=== PATIENT | male | born 2000 | race Caucasian/White ===

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

== ENCOUNTER 2022-04-10 15:00 | Inpatient (IN) | payer MEDICAID, OTHER ==
[2022-04-10 17:11] LABS: Amphetamine Screen,Urine Not Detected (NotDetected); Barbiturate Screen,Urine Not Detected (NotDetected); Benzodiazepines Screen,Urine Detected (NotDetected); Cocaine Screen,Urine Not Detected (NotDetected); Methadone Screen, Urine Not Detected (NotDetected); Opiate Screen,Urine Not Detected (NotDetected); Oxycodone Screen, Urine Not Detected (NotDetected); Phencyclidine Screen,Urine Not Detected (NotDetected); Tricyclic Antidepressant,Urine Not Detected (NotDetected); Urn Cannabinoid Scrn Detected (NotDetected)
--- NOTE | 2022-04-10 17:39 | ED ---
General Adult HPI - General Chief complaint: Psychiatric Symptoms Stated complaint: EPS eval Time Seen by Provider: 04/10/22 15:22 Source: patient, RN notes reviewed, old records reviewed Mode of arrival: ambulatory Limitations: no limitations - History of Present Illness Initial comments: This is a 22-year-old male presents emergency Department with a past medical history significant for depression and autism. Patient comes in stating that he has been depressed for a while. Patient states he is becoming more more preoccupied with hurting himself. Patient states one of the more recent events that has occurred that's made her more depressed is that he is attracted to young lady at work and she is not interested in fact she is interested in his coworker. Patient denies having any plan patient denies any previous suicide attempts. Patient states he has been smoking marijuana quite a bit lately but he states his only during cousin helps with his depression. Patient denies any physical complaints today. Patient denies headache patient denies numbness weakness. Patient denies any chest pain difficulty breathing first breath per patient denies any recent fever chills or cough. Patient denies abdominal pain patient denies nausea vomiting diarrhea. - Related Data Home Medications Medication Instructions Recorded Confirmed FLUoxetine HCL [PROzac] 40 mg PO DAILY 04/10/22 04/10/22 Allergies Allergy/AdvReac Type Severity Reaction Status Date / Time No Known Allergies Allergy Verified 04/10/22 16:41 Review of Systems ROS Statement: Those systems with pertinent positive or pertinent negative responses have been documented in the HPI. ROS Other: All systems not noted in ROS Statement are negative. Past Medical History Past Medical History: No Reported History History of Any Multi-Drug Resistant Organisms: None Reported Past Surgical History: Orthopedic Surgery Past Psychological History: Depression Smoking Status: Never smoker Past Alcohol Use History: None Reported Past Drug Use History: Marijuana General Exam - General Exam Comments Initial Comments: GENERAL: Patient is well-developed and well-nourished. Patient is nontoxic and well- hydrated and is in no acute distress. ENT: Neck is soft and supple. No significant lymphadenopathy is noted. Oropharynx is clear. Moist mucous membranes. Neck has full range of motion without eliciting any pain. EYES: The sclera were anicteric and conjunctiva were pink and moist. Extraocular movements were intact and pupils were equal round and reactive to light. Eyelids were unremarkable. PULMONARY: Unlabored respirations. Good breath sounds bilaterally. No audible rales rhonchi or wheezing was noted. CARDIOVASCULAR: There is a regular rate and rhythm without any murmurs gallops or rubs. ABDOMEN: Soft and nontender with normal bowel sounds. SKIN: Skin is clear with no lesions or rashes and otherwise unremarkable. NEUROLOGIC: Patient is alert and oriented x3. Cranial nerves II through XII are grossly intact. Motor and sensory are also intact. Normal speech, volume and content. Symmetrical smile. MUSCULOSKELETAL: Normal extremities with adequate strength and full range of motion. LYMPHATICS: No significant lymphadenopathy is noted PSYCHIATRIC: Patient states is very depressed and thinking about suicide though he has no plan at this time Limitations: no limitations Course Vital Signs 04/10/22 15:17 Temperature 98.2 F Pulse Rate 79 Respiratory 18 Rate Blood Pressure 129/69 O2 Sat by Pulse 98 Oximetry Medical Decision Making - Medical Decision Making Was pt. sent in by a medical professional or institution? @ -No Did you speak to anyone other than the patient for history? @ -Father gave some past medical history that the patient had forgotten Did you review nursing and triage notes? @ -I agree with nursing notes and triage notes Were old charts reviewed? @ -No Differential Diagnosis? @ -Depression, suicidal, anxiety, bipolar, psychosis, drug use and this is not an all inclusive list EKG interpreted by me (3pts min.)? @ -None X-rays interpreted by me (1pt min.)? @ -None CT interpreted by me (1pt min.)? @ -None U/S interpreted by me (1pt. min.)? @ -None What testing was considered but not performed? (CT, X-rays, U/S, labs)? Why? @ -None What meds were considered but not given? Why? @ -None Did you discuss the management of the patient with other professionals? @ -I spoke with psych nurse and she spoke with psychiatrist and decided the patient needed to be admitted Did you reconcile home meds? @ -None Was smoking cessation discussed for >3mins.? @ -None Was critical care preformed (if so, how long)? @ -None Were there social determinants of health that impacted care today? How? (Homelessness, low income, unemployed, alcoholism, drug addiction, transportation, low edu. Level, literacy, decrease access to med. care, care home, rehab)? @ -None Was there de-escalation of care discussed even if they declined? (Discuss DNR or withdrawal of care, Hospice)? @ -None What co-morbidities impacted this encounter? (DM, HTN, Smoking, COPD, CAD, Cancer, CVA, Hep., AIDS, mental health diagnosis, sleep apnea, morbid obesity)? @ -None Was patient admitted / discharged? @ -Patient will be admitted Undiagnosed new problem with uncertain prognosis? @ -None Drug Therapy requiring intensive monitoring for toxicity (Heparin, Nitro, Insulin, Cardizem)? @ -None Were any procedures done? @ -None Diagnosis/symptom? @ -Depression and suicide ideations Acute, or Chronic, or Acute on Chronic? @ -Acute on chronic Uncomplicated (without systemic symptoms) or Complicated (systemic symptoms)? @ -Uncomplicated Side effects of treatment? @ -None Exacerbation, Progression, or Severe Exacerbation] @ -None. Poses a threat to life or bodily function? @ -Yes patient is threatening to harm himself - Lab Data Lab Results 04/10/22 Range/Units 15:57 Urine Opiates Screen Not Detected (NotDetected) Ur Oxycodone Screen Not Detected (NotDetected) Urine Methadone Screen Not Detected (NotDetected) Ur Propoxyphene Screen Not Detected (NotDetected) Ur Barbiturates Screen Not Detected (NotDetected) U Tricyclic Antidepress Not Detected (NotDetected) Ur Phencyclidine Scrn Not Detected (NotDetected) Ur Amphetamines Screen Not Detected (NotDetected) U Methamphetamines Scrn Not Detected (NotDetected) U Benzodiazepines Scrn Detected H (NotDetected) Urine Cocaine Screen Not Detected (NotDetected) U Marijuana (THC) Screen Detected H (NotDetected) Disposition Clinical Impression: Depression, Suicidal ideation Disposition: ADMITTED IP TO THIS HOSP Referrals: Gagandeep Tamayo MD [Primary Care Provider] - 1-2 days Time of Disposition: 19:05
[2022-04-10] MEDS ORDERED: HALOPERIDOL LACTATE 5 MG/ML 1 ML VIAL IM PRN (22:41)
[2022-04-10] MEDS ORDERED: MAGNESIUM HYDROXIDE 2,400 MG/10 ML CUP PO PRN (22:41)
[2022-04-10] MEDS ORDERED: LORazepam 1 MG TAB PO PRN (22:41)
[2022-04-10] MEDS ORDERED: ACETAMINOPHEN TAB 325 MG TAB PO PRN (22:41)
[2022-04-10] MEDS ORDERED: MAG HYDROX/AL HYDROX/SIMETH 30 ML CUP PO PRN (22:41)
[2022-04-10] MEDS ORDERED: LORazepam 2 MG/ML INJ IM PRN (22:49)
[2022-04-10] MEDS ORDERED: haloperidoL 5 MG TAB PO PRN (22:49)
[2022-04-11] MEDS ORDERED: FLUoxetine HCL 20 MG CAP PO SCH (09:00)
[2022-04-11] MEDS ORDERED: MELATONIN 3 MG TABLET PO PRN (11:23)
[2022-04-11] MEDS: LITHIUM CARBONATE 150 MG CAP PO SCH ×2 (11:31→20:03)
--- NOTE | 2022-04-11 11:31 | P.HP ---
Psychiatric H&P - . H&P Date: 04/11/22 History & Physical: Allergies Allergy/AdvReac Type Severity Reaction Status Date / Time No Known Allergies Allergy Verified 04/10/22 16:41 Vital Signs Temp 97.0 F L 04/10/22 23:59 Pulse 94 04/10/22 23:59 Resp 18 04/10/22 23:59 BP 148/84 04/10/22 23:59 Pulse Ox 98 04/10/22 15:17 FiO2 Intake & Output 04/10/22 04/11/22 04/11/22 18:59 06:59 18:59 Weight 104.326 kg 100.7 kg Laboratory Last Values Urine Opiates Screen Not Detected (NotDetected) 04/10/22 15:57 Ur Oxycodone Screen Not Detected (NotDetected) 04/10/22 15:57 Urine Methadone Screen Not Detected (NotDetected) 04/10/22 15:57 Ur Propoxyphene Screen Not Detected (NotDetected) 04/10/22 15:57 Ur Barbiturates Screen Not Detected (NotDetected) 04/10/22 15:57 U Tricyclic Antidepress Not Detected (NotDetected) 04/10/22 15:57 Ur Phencyclidine Scrn Not Detected (NotDetected) 04/10/22 15:57 Ur Amphetamines Screen Not Detected (NotDetected) 04/10/22 15:57 U Methamphetamines Scrn Not Detected (NotDetected) 04/10/22 15:57 U Benzodiazepines Scrn Detected (NotDetected) H 04/10/22 15:57 Urine Cocaine Screen Not Detected (NotDetected) 04/10/22 15:57 U Marijuana (THC) Screen Detected (NotDetected) H 04/10/22 15:57 Coronavirus (PCR) Not Detected (Not Detectd) 04/10/22 17:50 04/11/22 11:14 IDENTIFYING DATA: Patient is a 22-year-old male currently lives with his parents and his brothers, 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 HPI: Patient presented to the hospital yesterday complaining of depression and suicidal ideations. Patient confessed that he lady that he is interested in is dating one of his coworkers and he claimed that this set off his depression. Patient was admitted to the mental health unit voluntarily. Patient currently follows up at [facility] with nurse practitioner and was last seen in late February 2022. Patient is currently being treated at [facility] for major depressive disorder and generalized anxiety disorder along with ADHD and autism spectrum disorder. Patient has currently on Prozac. Patient was seen today laying in bed and agreeable business writer. He had a disheveled appearance today. He claims that he has been feeling hopeless and having self-hatred. His UDS was positive for benzodiazepines and THC. He claims that a girl that he is interested in is not interested in him and claims that he was feeling more depressed because of it. He states that he is also been depressed for a while and claims that "it comes and bursts". He states that for the past 3-4 weeks it has been more severe in the last a few hours before it "gradually gets better". He claims that he is having some mood instability. States that sometimes there is no triggers to his depression. Also admits to anxiety. Claims that his sleep has been on and off, claims that his appetite is fair. Denying any paranoia at this time. Patient denies any current suicidal or homicidal ideations intent or plan. At this time patient denies any auditory or visual hallucinations. Patient denies any flight of ideas racing thoughts and increased in goal directed behavior. Patient admits to using marijuana frequently using edibles, also denies any cigarette use or any other recreational drug use. PAST PSYCHIATRIC HISTORY: Patient states that he has history of major depressive disorder and generalized anxiety disorde along with ADHD r. Patient is currently on Prozac however has tried other stimulants in the past. Patient denies any previous psychiatric hospitalizations. Patient currently follows up the nurse practitioner at [facility]. He was last seen at [facility] in late February 2022. Patient denies any history of suicide attempts in the past. Past Medical History: No Reported History History of Any Multi-Drug Resistant Organisms: None Reported Past Surgical History: Orthopedic Surgery Past Psychological History: Depression Smoking Status: Never smoker Past Alcohol Use History: None Reported Past Drug Use History: Marijuana ALLERGIES: as per EMR CHEMICAL DEPENDENCY HISTORY: as per HPI FAMILY PSYCHIATRIC/SUBSTANCE USE HISTORY: Claims that "a lot of people have mental health problems in my family at one point or another". SOCIAL HISTORY: Patient was born and raised in [facility]. He states that he completed up to ninth grade in school and then was home schooled afterwards however does have a degree. He states that he does not have any legal history. He claims that he lives with his parents and brothers in the house. 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 MENTAL STATUS EXAM: General Appearance: Patient appears to be tall, currently hair, wearing glasses, stated age is alert, directable, and attempts to cooperate. Patient appears to have poor hygiene and grooming. Behavior: Patient is seated without any agitated behavior. Attempts to cooperate. Speech: Patient's speech is fluent and nonpressured. Monotone. Mood/Affect: Patient reports their mood is depressed and anxious, affect is congruent and constricted. Suicidality/Homicidality: Patient denies having any homicidal ideation intent or plan. Denies any suicidal ideations intent or plan Perceptions: Patient denies any visual hallucinations and denies any auditory hallucinations Though content/process: There is no evidence of any delusional thought content and thought process is linear and goal-directed. Steward. Focus on stressors. Memory and concentration: AOX3, grossly intact for the purposes of this session. Can spell "WORLD" backwards Judgment and insight: poor STRENGTHS/WEAKNESSES: strength is that patient is resilient. Weakness is that patient has poor judgment and is impulsive INTELLECT: average IMPRESSIONS: Major depressive disorder, without psychotic features generalized anxiety disorder Cannabis use disorder PLAN: -Patient is admitted under voluntary status to [facility]HU for stabilization of psychiatric symptoms and safety. Patient has signed adult voluntary form and medication consent and is placed in patient's chart. -Medications : Will start patient on lithium 150 mg twice a day for mood adjunct/suicidal thoughts, increase Prozac to 60 mg daily for mood/anxiety. Melatonin when necessary for sleep. -Ativan and Haldol PRN for agitation/aggression -Patient was counselled on substance abuse and desired to cut back on use -Patient was informed of the risks, benefits and side effects of the medication and patient verbally consented to taking the medications. Patient signed med consent form and was placed in chart. -Internal Medicine consult to perform medical evaluation and physical. -NRT - not needed as patient does not smoke -SW on board for discharge planning. Encourage patient to participate in groups to work on coping skills. 04/11/22 11:19 04/11/22 11:26
[2022-04-11 11:54] LABS: Basophils # (A) 0.1 k/uL (0-0.2); Basophils % (A) 1 %; Eosinophils # (A) 0.1 k/uL (0-0.7); Eosinophils % (A) 1 %; HCT 45.8 % (39.0-53.0); HGB 16.4 gm/dL (13.0-17.5); Lymphocytes % (A) 27 %; MCH 29.1 pg (25.0-35.0); MCHC 35.7 g/dL (31.0-37.0); MCV 81.3 fL (80.0-100.0); Mean Platelet Volume 7.4; Monocytes # (A) 0.4 k/uL (0-1.0); Monocytes % (A) 6 %; Neutrophils # (A) 4.5 k/uL (1.3-7.7); Neutrophils % (A) 63 %; Platelet Count 285 k/uL (150-450); RBC 5.63 m/uL (4.30-5.90); RDW 12.2 % (11.5-15.5); WBC 7.2 k/uL (4.0-11.0)
[2022-04-11 12:10] LABS: ALT 34 U/L (4-49); AST 35 U/L (17-59); African American GFR (CKD) >90 (>60 ml/min/1.73 sqM); Albumin 4.8 g/dL (3.5-5.0); Alkaline Phosphatase 60 U/L (38-126); Anion Gap 9 mmol/L; Blood Urea Nitrogen 12 mg/dL (9-20); Calcium 9.8 mg/dL (8.4-10.2); Carbon Dioxide 26 mmol/L (22-30); Chloride 104 mmol/L (98-107); Glucose 81 mg/dL (74-99); Non-African American GFR(CKD) 87 (>60 ml/min/1.73 sqM); Potassium 4.2 mmol/L (3.5-5.1); Sodium 139 mmol/L (137-145); Total Bilirubin 1.1 mg/dL (0.2-1.3); Total Protein 7.8 g/dL (6.3-8.2)
--- NOTE | 2022-04-11 15:48 | P.HPIM ---
History of Present Illness H&P Date: 04/11/22 Chief Complaint: Depressed, anxious This a 22-year-old gentleman with history of depression, anxiety, marijuana use, follows with [facility], presented to the ER with complaints of worsening depression, anxiety. Maintained on Prozac. Voluntarily admitted to the inpatient mental [facility] unit. Patient minimally conversing.Patient denies any physical complaints today. Patient denies headache patient denies numbness weakness. Patient denies any chest pain, palpitations or shortness of breath. denies any recent fever chills or cough. Patient denies abdominal pain patient denies nausea vomiting diarrhea. Hematology, chemistry panels unremarkable. Coronivirus not detected. Afebrile. Toxicology detected benzodiazepines and marijuana. Review of Systems ROS Statement: Those systems with pertinent positive or pertinent negative responses have been documented in the HPI. ROS Other: All systems not noted in ROS Statement are negative. Past Medical History Past Medical History: No Reported History History of Any Multi-Drug Resistant Organisms: None Reported Past Surgical History: Orthopedic Surgery Past Psychological History: Depression Smoking Status: Never smoker Past Alcohol Use History: None Reported Past Drug Use History: Marijuana Medications and Allergies Home Medications Medication Instructions Recorded Confirmed Type FLUoxetine HCL [PROzac] 40 mg PO DAILY 04/10/22 04/10/22 History Allergies Allergy/AdvReac Type Severity Reaction Status Date / Time No Known Allergies Allergy Verified 04/10/22 16:41 Physical Exam Vitals: Vital Signs Temp Pulse Resp BP 04/10/22 23:59 97.0 F L 94 18 148/84 Intake and Output 04/11/22 04/11/22 04/11/22 06:59 14:59 22:59 Other: Weight 100.7 kg PHYSICAL EXAM: VITAL SIGNS: [As above] GENERAL: Sitting up in chair, no acute distress HEENT: Conjunctivae normal. eyes normal. NECK: No JVD. No thyroid enlargement. No LNs CARDIOVASCULAR: S1, S2 regular. No murmur RESPIRATION: Breath sounds diminished in the bases. No rhonchi or crackles. No bronchial breathing. ABDOMEN: Soft, nontender . No guarding. no masses palpable. No ascites, No hepatosplenomegaly.Bowel sounds heard. LEGS: No edema. no swelling PSYCHIATRY: Alert and oriented X3, mood and affect normal. NERVOUS SYSTEM: Cranial N 2-12 grossly normal. Moves all 4 limbs. Diffuse weakness No focal deficits. Strength and sensation grossly intact.. Skin: Warm and dry, no rash Results CBC & Chem 7: 04/11/22 11:19 04/11/22 11:19 Labs: Abnormal Lab Results - Last 24 Hours (Table) 04/10/22 Range/Units 15:57 U Benzodiazepines Scrn Detected H (NotDetected) U Marijuana (THC) Screen Detected H (NotDetected) Assessment and Plan Assessment: Depression Anxiety Benzos and marijuana use Plan: Continue on current medication regime ,monitoring and symptomatic treatment. PPI added for GI prophylaxis. Thank you for the consult. Please don't hesitate to call with any further concerns. The impression and plan of care has been dictated as directed. : I performed a history and examination of this patient, discussed the same with the dictator. I agree with the dictator's note ,documented as a scribe. Any additional findings or plans will be noted.
[2022-04-11] MEDS: PANTOPRAZOLE 40 MG TABLET PO SCH (16:09)
[2022-04-12] LABS: Chol/HDL Ratio 7.76 Ratio; LDL Cholesterol,Calculated 204.3 mg/dL (0.0-131.0)
[2022-04-12] MEDS: FLUoxetine HCL 20 MG CAP PO SCH (08:51)
[2022-04-12] MEDS: LITHIUM CARBONATE 150 MG CAP PO SCH ×2 (08:51→20:46)
[2022-04-12] MEDS: PANTOPRAZOLE 40 MG TABLET PO SCH (08:51)
--- NOTE | 2022-04-12 11:59 | P.PN ---
Progress Note - Text Progress Note Date: 04/12/22 Interval History: Patient was seen wandering the hallways and was directable and agreeable to jose angel oscar with customs entry writer in the office. Patient states that he just got out of group today and was coloring pictures. He claims that he had a "bout of depression" yesterday and states that he came out of nowhere. He claims that he was feeling thoughts of self-harm however states that he was trying to use coping skills to help him. He claims they slept a bit better last night. He claims that he is still having anxiety. He was fairly focused on discharge and minimizing his need for hospitalization. Continues to have superficial insight. He has been taking his medications and not reporting any side effects at this time. Claims have a fair appetite. At this time patient denies any suicidal or homical ideations, intent or plan. Patient denies any auditory, visual hallucinations and denies any paranoia or delusions. Patient denies any side effects from the medications and has been compliant with meds. Mental Status Exam: General Appearance: Patient appears to be tall, currently hair, wearing glasses, stated age is alert, directable, and attempts to cooperate. Patient appears to have mildly improving hygiene and grooming. Behavior: Patient is seated without any agitated behavior. Attempts to cooperate. Speech: Patient's speech is fluent and nonpressured. Monotone. [place] Mood/Affect: Patient reports their mood is depressed and anxious, improving mildly, affect is congruent and constricted. Suicidality/Homicidality: Patient denies having any homicidal ideation intent or plan. Denies any suicidal ideations intent or plan Perceptions: Patient denies any visual hallucinations and denies any auditory hallucinations Though content/process: There is no evidence of any delusional thought content and thought process is linear and goal-directed. [place]. Focus on discharge Memory and concentration: AOX3, grossly intact for the purposes of this session. Judgment and insight: poor, improving mildly IMPRESSIONS: Major depressive disorder, without psychotic features generalized anxiety disorder Cannabis use disorder Plan: -Patient continues to meet criteria for inpatient psychiatric admission for symptom stabilization and safety. Patient has signed adult voluntary form and medication consent and was placed in patient's chart. -Medications: Continue with lithium under and 50 mg twice a day for mood stabilization/suicidal thoughts, Prozac 60 mg daily for mood/anxiety. Melatonin when necessary for sleep. -When necessary Ativan and Haldol for agitation/aggression. -NRT - not needed as patient does not smoke -SW on board for discharge planning. Encouraged the patient to participate in milieu. likely discharge early next week, will need to get lithium level over the weekend likely saturday.
[2022-04-12 12:03] LABS: Appearance,Urine Clear (Clear); Bilirubin,Urine Negative (Negative); Blood,Urine Negative (Negative); Color,Urine Yellow; Glucose,Urine (UA) Negative (Negative); Ketones,Urine Negative (Negative); Leukocyte Esterase,Urine Negative (Negative); Nitrite,Urine Negative (Negative); Protein,Urine Trace (Negative); Specific Gravity,Urine 1.019 (1.001-1.035)
[2022-04-13] MEDS: LITHIUM CARBONATE 150 MG CAP PO SCH ×2 (09:08→20:48)
[2022-04-13] MEDS: FLUoxetine HCL 20 MG CAP PO SCH (09:08)
[2022-04-13] MEDS: PANTOPRAZOLE 40 MG TABLET PO SCH (09:10)
--- NOTE | 2022-04-13 09:51 | P.PN ---
Progress Note - Text Progress Note Date: 04/13/22 Interval History: Patient was seen wandering the hallways and was directable and agreeable to jose angel oscar with writer producer in the office. Patient was also in group earlier today. He states that he is doing a bit better today however continues to have a fairly constricted affect. There is concern of him minimizing his symptoms as he was fairly vague about his depression. He continues to be fairly focused on discharge and fairly concrete as well. He is not reporting any side effects from medications and is agreeable to continue taking them. He claims that he is going to groups and trying to participate. He claims that the interaction with his father when he spoke with him over the phone was "not that great" and report from the social work program coordinator was that father was still concerned about patient's mood. Patient claims that she had a difficult time sleeping last night due to the milieu of the unit and also staff leaving the door open. Claims have a fair appetite. He states that he has not showered since being on the unit and will attempt to shower today. Continues to have superficial insight. At this time patient denies any suicidal or homical ideations, intent or plan. Patient denies any auditory, visual hallucinations and denies any paranoia or delusions. Patient denies any side effects from the medications and has been compliant with meds. Mental Status Exam: General Appearance: Patient appears to be tall, currently hair, wearing glasses, stated age is alert, directable, and attempts to cooperate. Patient appears to have mildly improving hygiene and grooming. Behavior: Patient is seated without any agitated behavior. Attempts to cooperate. Speech: Patient's speech is fluent and nonpressured. Monotone. [place] Mood/Affect: Patient reports their mood is improving mildly, affect is congruent and constricted. Suicidality/Homicidality: Patient denies having any homicidal ideation intent or plan. Denies any suicidal ideations intent or plan Perceptions: Patient denies any visual hallucinations and denies any auditory hallucinations Though content/process: There is no evidence of any delusional thought content and thought process is linear and goal-directed. [place]. Focus on discharge Memory and concentration: AOX3, grossly intact for the purposes of this session. Judgment and insight: poor, improving mildly IMPRESSIONS: Major depressive disorder, without psychotic features generalized anxiety disorder Cannabis use disorder Plan: -Patient continues to meet criteria for inpatient psychiatric admission for symptom stabilization and safety. Patient has signed adult voluntary form and medication consent and was placed in patient's chart. -Medications: lithium 150 mg twice a day for mood stabilization/suicidal thoughts, increase Prozac 80 mg daily for mood/anxiety. increase Melatonin 10 mg for sleep. -When necessary Ativan and Haldol for agitation/aggression. -NRT - not needed as patient does not smoke -SW on board for discharge planning. Encouraged the patient to participate in milieu. likely discharge early next week if patient continues to improve over the weekend. We'll ask social work program coordinator to contact patient's father or mother to have them come in to visit patient and will follow up with him on Saturday if they've any concerns.
[2022-04-13] MEDS: MELATONIN 5 MG TABLET PO SCH ×2 (21:52→23:57)
[2022-04-13 23:59] VITALS: RESP 16
[2022-04-14] MEDS: LITHIUM CARBONATE 150 MG CAP PO SCH ×2 (08:39→20:43)
[2022-04-14] MEDS: PANTOPRAZOLE 40 MG TABLET PO SCH ×2 (08:39→08:42)
[2022-04-14] MEDS ORDERED: FLUoxetine HCL 20 MG CAP PO SCH (09:00)
--- NOTE | 2022-04-14 17:52 | P.PN ---
Progress Note - Text Progress Note Date: 04/14/22 Interval history: [facility] and was directable and agreeable to speak with senior grant writer. He reports good mood, denies anxiety, has somewhat of a demanding tone. States Prozac was increased to 80 mg daily but he only took 60 mg this morning and prefers to keep his dose at 60 mg since he feels he is doing well at this dose, does not want increased to 80 mg daily. At this time, patient denies any suicidal or homicidal ideation, intent or plan. Denies any auditory or visual hallucinations. Patient denies any side effects from the medications. Mental status exam: General Appearance: Patient appears to be stated age, dressed in clean casual attire, well-nourished. Behavior: No agitated behavior. Patient is calm and directable, and attempts to cooperate. Speech: Patient's speech is fluent and non-pressured. Mood/Affect: Mood is improving mildly, affect is congruent and constricted. Suicidality/Homicidality: Patient denies having any suicidal or homicidal ideation intent or plan. Perceptions: Patient denies any auditory or visual hallucinations. Though content/process: There is no evidence of any delusional thought content and thought process is linear and goal-directed. Memory and concentration: AOX3, grossly intact for the purposes of this session Judgment and insight: improving mildly Assessment/Plan: Continue with current diagnosis. Patient continues to meet criteria for inpatient psychiatric admission for symptom stabilization and safety. Decrease Prozac back to 60 mg daily per patient preference. Monitor for medication compliance and for any psychotropic medication side effects. Will continue to monitor ongoing response to treatment. Encouraged participation in milieu.
[2022-04-14] MEDS: MELATONIN 5 MG TABLET PO SCH ×2 (22:10→22:30)
[2022-04-15] MEDS: FLUoxetine HCL 20 MG CAP PO SCH (08:20)
[2022-04-15] MEDS: PANTOPRAZOLE 40 MG TABLET PO SCH (08:21)
[2022-04-15] MEDS: LITHIUM CARBONATE 150 MG CAP PO SCH ×2 (08:21→19:58)
[2022-04-15 15:47] VITALS: BP 137/70; PULSE 68; TEMP 98.1
[2022-04-15] MEDS: MELATONIN 5 MG TABLET PO SCH (21:29)
--- NOTE | 2022-04-15 21:53 | P.PN ---
Progress Note - Text Progress Note Date: 04/15/22 Interval history: [facility] and was directable and agreeable to speak with speech writer. He reports good mood, denies anxiety or depressed mood. At this time, patient denies any suicidal or homicidal ideation, intent or plan. Denies any auditory or visual hallucinations. Patient denies any side effects from the medications. Mental status exam: General Appearance: Patient appears to be stated age, dressed in clean casual attire, well-nourished. Behavior: No agitated behavior. Patient is calm and directable, and attempts to cooperate. Speech: Patient's speech is fluent and non-pressured. Mood/Affect: Mood is improving mildly, affect is congruent and constricted. Suicidality/Homicidality: Patient denies having any suicidal or homicidal ideation intent or plan. Perceptions: Patient denies any auditory or visual hallucinations. Though content/process: There is no evidence of any delusional thought content and thought process is linear and goal-directed. Memory and concentration: AOX3, grossly intact for the purposes of this session Judgment and insight: improving mildly Assessment/Plan: Continue with current diagnosis. Patient continues to meet criteria for inpatient psychiatric admission for symptom stabilization and safety. Continue Prozac 60 mg daily for depression/anxiety. Monitor for medication compliance and for any psychotropic medication side effects. Will continue to monitor ongoing response to treatment. Encouraged participation in milieu.
[2022-04-16] MEDS: FLUoxetine HCL 20 MG CAP PO SCH (08:17)
[2022-04-16] MEDS: LITHIUM CARBONATE 150 MG CAP PO SCH (08:17)
--- NOTE | 2022-04-16 12:18 | P.DS ---
Providers Date of admission: 04/10/22 22:39 Expected date of discharge: 04/16/22 Attending physician: Diego Corley MD Consults: 04/10/22 22:41 Consult Physician Routine Consulting Provider: Gagandeep Tamayo Consult Reason/Comments: H&P and medical Do you want consulting provider notified?: Yes, Notify in am Primary care physician: Gagandeep Tamayo - Discharge Diagnosis(es) (1) Major depressive disorder without psychotic features Status: Acute Priority: High (2) Generalized anxiety disorder Status: Acute Priority: Medium (3) Cannabis use disorder Status: Acute Priority: Low Hospital Course: Admission HPI: Admission note was completed by curriculum writer "Patient is a 22-year-old male currently lives with his parents and his brothers, 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 Patient presented to the hospital yesterday complaining of depression and suicidal ideations. Patient confessed that he lady that he is interested in is dating one of his coworkers and he claimed that this set off his depression. Patient was admitted to the mental health unit voluntarily. Patient currently follows up at [facility] with nurse practitioner and was last seen in late February 2022. Patient is currently being treated at [facility] for major depressive disorder and generalized anxiety disorder along with ADHD and autism spectrum disorder. Patient has currently on Prozac. Patient was seen today laying in bed and agreeable speech lang path. He had a disheveled appearance today. He claims that he has been feeling hopeless and having self-hatred. His UDS was positive for benzodiazepines and THC. He claims that a girl that he is interested in is not interested in him and claims that he was feeling more depressed because of it. He states that he is also been depressed for a while and claims that "it comes and bursts". He states that for the past 3-4 weeks it has been more severe in the last a few hours before it "gradually gets better". He claims that he is having some mood instability. States that sometimes there is no triggers to his depression. Also admits to anxiety. Claims that his sleep has been on and off, claims that his appetite is fair. Denying any paranoia at this time. Patient denies any current suicidal or homicidal ideations intent or plan. At this time patient denies any auditory or visual hallucinations. Patient denies any flight of ideas racing thoughts and increased in goal directed behavior. Patient admits to using marijuana frequently using edibles, also denies any cigarette use or any other recreational drug use." Hospital course: Upon admission to the unit patient was directable and agreeable to commence treatment and signed adult voluntary form . Patient got along well with other patients on the unit and followed unit protocol. Patient was compliant with the medications and denied any side effects throughout hospital course. Patient was started on lithium on and 50 mg twice a day for mood stabilization/suicidal thoughts, Prozac increased to 60 mg daily for mood/anxiety. Melatonin 10 mg daily at bedtime for sleep. Patient spoke of his stressors and engaged in therapy both group and individual. Patient was also seen by medical team for history and physical exam. Throughout the course of the hospitalization patient gradually improved with regards to mood, anxiety, suicidal thoughts, sleep and became more future oriented with improved insight and judgment. On the day of discharge patient denied any suicidal or homicidal ideations intent or plan denied any auditory or visual hallucinations. Patient endorsed wanting to live for his health and family. The patient denied any access to guns or weapons. Patient denied any paranoia and did not endorse any delusions. Patient does have a significant history of substance abuse and was counseled on abstaining from all substances including alcohol and marijuana. Patient elected to do outpatient substance use treatment program through [facility]. Patient was also counseled on the medications and need for regular compliance and was encouraged to follow-up with their outpatient appointment for mental health and also for [facility] care. Prior to discharge a family meeting will be arranged by group social worker to answer any questions and ensure safety upon discharge. Mental status exam: General Appearance: Patient appears to be stated age is alert, pleasant, and cooperative. Patient is in no acute distress and has improved hygiene and grooming Behavior: Patient is calmly seated without any agitated behavior. Speech: Patient's speech is fluent and nonpressured. Mood/Affect: Patient reports their mood is "better", affect is congruent and euthymic. Suicidality/Homicidality: Patient denies having any suicidal or homicidal ideation intent or plan. Perceptions: Patient denies any auditory or visual hallucinations. Though content/process: There is no evidence of any delusional thought content and thought process is linear and goal-directed. more future oriented Memory and concentration: AOX3, grossly intact for the purposes of this session. Can spell "WORLD" backwards correctly. Judgment and insight: improved with guarded prognosis Impression: Major depressive disorder without psychotic features Generalized anxiety disorder Cannabis use disorder Plan: -Continue with discharge today as patient has improved and stabilized psychiatrically and is not currently an imminent threat to himself and/or others. Patient will remain at chronically elevated risk for harm to self and/or others due to his impulsivity -Continue medications: Big Sky 150 mg twice a day for mood stabilization/suicidal thoughts, Prozac 60 mg daily for mood/anxiety, melatonin 10 mg daily at bedtime for sleep. -Patient was counseled on the need for medication compliance and appropriate follow-up at mental health and also primary care for medical issues. Patient verbalized understanding and agreed. -Social work to arrange for and conduct family meeting to ensure safety upon discharge and answer any questions/concerns. Social work also to arrange for patients follow up appointments with [facility] for psychiatric care along with follow up with primary care provider. -Patient counseled on abstaining from recreational drugs and marijuana and alcohol. Was informed/educated on the adverse effects on their physical and mental health. Patient verbally agreed and understood. Patient was offered substance abuse treatment however declined at this time. -Patient was instructed to return to the hospital or seek immediate medical care if their psychiatric or medical symptoms do worsen or reoccur. Allergies Allergy/AdvReac Type Severity Reaction Status Date / Time No Known Allergies Allergy Verified 04/10/22 16:41 Laboratory Results WBC 7.2 k/uL (4.0-11.0) 04/11/22 11:19 RBC 5.63 m/uL (4.30-5.90) 04/11/22 11:19 Hgb 16.4 gm/dL (13.0-17.5) 04/11/22 11:19 Hct 45.8 % (39.0-53.0) 04/11/22 11:19 MCV 81.3 fL (80.0-100.0) 04/11/22 11:19 MCH 29.1 pg (25.0-35.0) 04/11/22 11:19 MCHC 35.7 g/dL (31.0-37.0) 04/11/22 11:19 RDW 12.2 % (11.5-15.5) 04/11/22 11:19 Plt Count 285 k/uL (150-450) 04/11/22 11:19 MPV 7.4 04/11/22 11:19 Neutrophils % 63 % 04/11/22 11:19 Lymphocytes % 27 % 04/11/22 11:19 Monocytes % 6 % 04/11/22 11:19 Eosinophils % 1 % 04/11/22 11:19 Basophils % 1 % 04/11/22 11:19 Neutrophils # 4.5 k/uL (1.3-7.7) 04/11/22 11:19 Lymphocytes # 2.0 k/uL (1.0-4.8) 04/11/22 11:19 Monocytes # 0.4 k/uL (0-1.0) 04/11/22 11:19 Eosinophils # 0.1 k/uL (0-0.7) 04/11/22 11:19 Basophils # 0.1 k/uL (0-0.2) 04/11/22 11:19 Sodium 139 mmol/L (137-145) 04/11/22 11:19 Potassium 4.2 mmol/L (3.5-5.1) 04/11/22 11:19 Chloride 104 mmol/L (98-107) 04/11/22 11:19 Carbon Dioxide 26 mmol/L (22-30) 04/11/22 11:19 Anion Gap 9 mmol/L 04/11/22 11:19 BUN 12 mg/dL (9-20) 04/11/22 11:19 Creatinine 1.20 mg/dL (0.66-1.25) 04/11/22 11:19 Est GFR (CKD-EPI)AfAm >90 (>60 ml/min/1.73 sqM) 04/11/22 11:19 Est GFR (CKD-EPI)NonAf 87 (>60 ml/min/1.73 sqM) 04/11/22 11:19 Glucose 81 mg/dL (74-99) 04/11/22 11:[address] Glu mg/dL 108 04/11/22 11:19 Hemoglobin A1c 5.4 % (0.0-6.0) 04/11/22 11:19 Calcium 9.8 mg/dL (8.4-10.2) 04/11/22 11:19 Total Bilirubin 1.1 mg/dL (0.2-1.3) 04/11/22 11:19 AST 35 U/L (17-59) 04/11/22 11:19 ALT 34 U/L (4-49) 04/11/22 11:19 Alkaline Phosphatase 60 U/L (38-126) 04/11/22 11:19 Total Protein 7.8 g/dL (6.3-8.2) 04/11/22 11:19 Albumin 4.8 g/dL (3.5-5.0) 04/11/22 11:19 Triglycerides 124.00 mg/dL (0.00-149.00) 04/11/22 11:19 Cholesterol 263.00 mg/dL (0.00-200.00) H 04/11/22 11:19 LDL Cholesterol, Calc 204.3 mg/dL (0.0-131.0) H 04/11/22 11:19 VLDL Cholesterol, Calc 24.80 mg/dL (5.00-40.00) 04/11/22 11:19 HDL Cholesterol 33.90 mg/dL (40.00-60.00) L 04/11/22 11:19 Cholesterol/HDL Ratio 7.76 Ratio 04/11/22 11:19 TSH 1.370 mIU/L (0.465-4.680) 04/11/22 11:19 Urine Color Yellow 04/12/22 10:45 Urine Appearance Clear (Clear) 04/12/22 10:45 Urine pH 7.0 (5.0-8.0) 04/12/22 10:45 Ur Specific [place] 1.019 (1.001-1.035) 04/12/22 10:45 Urine Protein Trace (Negative) H 04/12/22 10:45 Urine Glucose (UA) Negative (Negative) 04/12/22 10:45 Urine Ketones Negative (Negative) 04/12/22 10:45 Urine Blood Negative (Negative) 04/12/22 10:45 Urine Nitrite Negative (Negative) 04/12/22 10:45 Urine Bilirubin Negative (Negative) 04/12/22 10:45 Urine Urobilinogen 2.0 mg/dL (<2.0) 04/12/22 10:45 Ur Leukocyte Esterase Negative (Negative) 04/12/22 10:45 Urine Opiates Screen Not Detected (NotDetected) 04/10/22 15:57 Ur Oxycodone Screen Not Detected (NotDetected) 04/10/22 15:57 Urine Methadone Screen Not Detected (NotDetected) 04/10/22 15:57 Ur Propoxyphene Screen Not Detected (NotDetected) 04/10/22 15:57 Ur Barbiturates Screen Not Detected (NotDetected) 04/10/22 15:57 U Tricyclic Antidepress Not Detected (NotDetected) 04/10/22 15:57 Ur Phencyclidine Scrn Not Detected (NotDetected) 04/10/22 15:57 Ur Amphetamines Screen Not Detected (NotDetected) 04/10/22 15:57 U Methamphetamines Scrn Not Detected (NotDetected) 04/10/22 15:57 U Benzodiazepines Scrn Detected (NotDetected) H 04/10/22 15:57 Big Sky <0.2 mmol/L 04/15/22 06:47 Urine Cocaine Screen Not Detected (NotDetected) 04/10/22 15:57 U Marijuana (THC) Screen Detected (NotDetected) H 04/10/22 15:57 Coronavirus (PCR) Not Detected (Not Detectd) 04/10/22 17:50 Vital Signs Temp 98.1 F 04/15/22 08:00 Pulse 68 04/15/22 08:00 Resp 16 04/15/22 08:00 BP 137/70 04/15/22 08:00 Pulse Ox 98 04/15/22 08:00 FiO2 Intake & Output 04/15/22 04/16/22 04/16/22 18:59 06:59 18:59 Weight 101.5 kg Patient Condition at Discharge: Stable Plan - Discharge Summary Discharge Rx Participant: No New Discharge Prescriptions: New Melatonin 10 mg PO HS 30 Days tab [place] Carbonate 150 mg PO BID 30 Days cap FLUoxetine HCL [PROzac] 60 mg PO DAILY 30 Days cap Acetaminophen Tab [Tylenol] 650 mg PO Q4HR PRN tab PRN Reason: Pain/Discomfort Discontinued FLUoxetine HCL [PROzac] 40 mg PO DAILY Discharge Medication List Acetaminophen Tab [Tylenol] 650 mg PO Q4HR PRN tab 04/16/22 [Rx] FLUoxetine HCL [PROzac] 60 mg PO DAILY 30 Days cap 04/16/22 [Rx] Big Sky Carbonate 150 mg PO BID 30 Days cap 04/16/22 [Rx] Melatonin 10 mg PO HS 30 Days tab 04/16/22 [Rx] Follow up Appointment(s)/Referral(s): [facility] [Outside] - 04/19/22 1:00 pm (04/19@ 1pm with Alessandra Nunes 04/30@ 2:30pm with Cynthia Donohue NP) Cynthia Donohue NPC [REFERRING] - 04/30/22 2:30 pm Gagandeep Tamayo MD [Primary Care Provider] - 1-2 days Patient Instructions/Handouts: Depression (DC), Generalized Anxiety Disorder (ED) Activity/Diet/Wound Care/Special Instructions: Avoid the use of street drugs and alcohol. Take all prescriptions as prescribed. When you are in need of refills on your medications, please contact your medical provider and/or outpatient psychiatrist to have this done. Please go to scheduled outpatient appointment for aftercare treatment. If symptoms return or become worse, call the crisis line at and/or go to the nearest emergency room for evaluation Discharge Disposition: HOME SELF-CARE
== END 2022-04-16 11:28 | disposition home or self-care (01) | DRG 881 ==
LOC: EC 15:00 → 3MHU 22:39
PROVIDERS: ADMIT Psychiatry & Neurology Psychiatry; ATTEND Psychiatry & Neurology Psychiatry
DX: F32.9 Major depressive disorder, single episode, unspecified (principal); R45.851 Suicidal ideations; F12.90 Cannabis use, unspecified, uncomplicated; F17.200 Nicotine dependence, unspecified, uncomplicated; F84.0 Autistic disorder; F90.9 Attention-deficit hyperactivity disorder, unspecified type; Z79.899 Other long term (current) drug therapy
CPT/HCPCS: 80053; 80061; 80178; 80306; 81003; 82075; 83036; 84443; 85025; 87635; 99285